=== PATIENT | female | born 1970 | race Caucasian/White ===

== ENCOUNTER → 2021-12-10 | Outpatient (CLI) | payer BC ==
[~2021-12-10] MED LIST: AMITRIPTYLINE100 MG PO; AUGMENTIN 875-1 EACH PO; BACTRIM DS TAB1 EACH PO; BUSPIRONE HCL15 MG PO; CARVEDILOL12.5 MG PO; KEFLEX500 MG PO; LISINOPRIL-HCT1 EAC2 PO; LOVENOX30 MG/0.3 SQ; NORCO 7.5-3251 EACH PO; NORVASC5 MG PO; OTEZLA30 MG PO; PRAMIPEXOLE D0.25 MG PO; VITAMIN C500 M2 PO; ZANAFLEX4 M1 PO; ZOLOFT100 MG PO
== END ==
LOC: KOH-I 14:10
DX: M79.671 Pain in right foot (principal)
CPT/HCPCS: 73630